=== PATIENT | female | born 2000 | race Caucasian/White ===

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

== ENCOUNTER 2022-08-30 00:42 | Emergency (ER) | payer OTHER, SELFPAY ==
[2022-08-30 00:44] VITALS: BP 129/87; PULSE 80; RESP 16; TEMP 36.2; O2SAT 100; BMI 27.3
--- NOTE | 2022-08-30 01:00 | EKG12_ITS ---
Test Reason : CP Blood Pressure : / mmHG Vent. Rate : 076 BPM Atrial Rate : 076 BPM P-R Int : 124 ms QRS Dur : 090 ms QT Int : 378 ms P-R-T Axes : 058 050 039 degrees QTc Int : 425 ms Normal sinus rhythm Normal ECG Confirmed by ANGELIA HOUSE, RANDY ([id number]), continuity editor EDUARDO ARRIAGA ([id number]) on 08/30/2022 1:14:54 PM Referred By: DOMINGO Confirmed By:LEA GALAN MD
[2022-08-30 01:42] VITALS: BP 133/83; PULSE 79; RESP 19; O2SAT 100
--- NOTE | 2022-08-30 02:04 | RAD_ITS ---
INDICATION: chest pain EXAMINATION/TECHNIQUE: X-RAY - XR Chest 2 Views COMPARISON: FINDINGS: LINES/DEVICES: None. LUNGS: No consolidation, edema or effusion. No pneumothorax. MEDIASTINUM AND CARDIOVASCULAR STRUCTURES: Cardiac silhouette not enlarged. Central airways and mediastinal contour are unremarkable. BONES AND SOFT TISSUES: Unremarkable. RAD/Chest PA and Lateral IMPRESSION: No radiographic evidence of acute cardiopulmonary disease. Electronically Signed: Elva Goyal MD at 3:10 EDT ,
--- NOTE | 2022-08-30 02:05 | EDS_ITS ---
HPI History of Present Illness Chief Complaint: Chest Pain Informant: patient, parent (Mother) and family Onset/Context/Timing Onset: Hours (2-3) Activity at onset: activity on onset and rest (Lying on couch) Timing: Continuous Quality: Positive for Pressure Location: Substernal (Lower. No radiation.) Current Severity: Moderate Maximum Severity: Moderate Worsened By: Breathing Relieved By: Nothing (Tried Tums did not help. Sitting up did not help. Exertion no worse.) Associated Symptoms: Negative for Nausea, Vomiting, Diaphoresis, Dyspnea, Cough, Lightheadedness or Palpitations Narrative Narrative: Patient started having chest discomfort that is persistent. She states she has had discomfort like this before but it is always been brief. She also has self diagnosed with acid reflux, she gets burning in her throat when that happens and she does not have that with this. She tried taking some Tums but it did not do anything. It is somewhat worse when she breathes, but nonlateralizing symptoms and without dyspnea, lightheadedness, syncope, palpitations. Mom states that remotely when she had COVID she had an abnormal EKG and was referred to cardiology who then cleared her and said that she was fine. That was the main reason she brought her in. In addition, she has a history of MTHFR, which was diagnosed by blood test only because family members including her mother have it and she was being checked to see if she has it. She has never had a DVT before. She denies any symptoms of one now. She denies any recent travel out of the area, immobilization, hospitalization, or surgery. [facility] Medical History (Updated 08/30/22 @ 03:[address] Bobby Mclaughlin MD) Anxiety Migraine MTHFR mutation Home Medications topiramate 25 mg tablet 10 mg PO DAILY 09/13/13 [History Last Taken Unknown] Allergy/AdvReac Type Severity Reaction Status Date / Time No Known Allergies Allergy Verified 11/03/18 21:15 Social History Smoking Status: Never smoker ROS ROS ED Constitutional Constitutional ED: Denies chills or fever(s) Eyes Eyes: Denies change in vision or diplopia ENT ENT ED: Denies rhinorrhea or sore throat Cardiovascular Cardiovascular: Reports chest pain; Denies palpitations or racing heartbeat Respiratory/Chest Respiratory/Chest: Denies cough or dyspnea Gastrointestinal Gastrointestinal: Denies abdominal pain, diarrhea, nausea or vomiting Genitourinary Genitourinary ED: Denies dysuria or hematuria Musculoskeletal Musculoskeletal: Denies back pain or neck pain Integumentary Denies abscess or rash Neurologic Neurologic: Denies headache(s), paresthesias or weakness Psychiatric Psychiatric: Denies anxiety or suicidal thoughts EXAM Physical Exam Const Vital Signs: 08/30/22 00:44 08/30/22 00:55 Temperature 97.1 F L Temperature Source Temporal Pulse Rate 80 Respiratory Rate 16 Respiratory Effort Normal Blood Pressure 129/87 H Blood Pressure Mean 101 Pulse Ox 100 Oxygen Delivery Method Room Air Positive well nourished and well developed Constitutional Narrative: Well-appearing General Appearance ED: well developed and NAD HEENT Reports moist mucous membranes normocephalic and atraumatic Eyes PERRL and EOMs intact bilaterally Neck full ROM and supple Chest Wall inspection of chest normal Chest Narrative: Mild sternal tenderness no crepitance Resp normal respiratory effort and clear to auscultation bilaterally Cardio regular rate, regular rhythm and no murmurs Rate: Negative for tachycardic GI non-tender and non-distended Auscultation: normoactive bowel sounds Palpation: soft Back/Spine no CVA tenderness General Back: other FROM Extremity normal to inspection General Extremety ED: Negative for edema, pulses abnormal or tenderness General Extremity: Negative for edema or pulses abnormal Neuro oriented x3, CN's II-XII intact bilaterally and no sensory deficits noted Sensorium / Orientation: awake and alert Motor Exam: strength 5/5 throughout Skin no rashes or lesions noted and no wounds Heart Score History: Slightly/Non-Suspicious ECG: Normal Age: </= 45 years Risk Factors: No Risk Factors Troponin: </= Normal Limit Score: 0 MDM MDM MDM Narrative Medical decision making narrative: Work-up included troponin, EKG, two-view chest x-ray which my interpretation is normal with narrow mediastinum, radiology in agreement, as well as a D-dimer. All of this was normal. This rules out acute pulmonary embolus as cause for her symptoms, and her troponin is negative along with a normal EKG. Furthermore, she was given Mylanta, this resolved her pain and she felt much better. Likely esophageal in etiology, reassured and discharged home, follow-up advised. Lab Data Attestation: I reviewed the patient's lab results. Labs: Laboratory Results - last 24 hr 08/30/22 08/30/22 08/30/22 02:44 02:44 02:44 WBC 7.7 RBC 5.02 Hgb 14.6 Hct 44.5 MCV 88.6 MCH 29.1 MCHC 32.8 RDW Std Deviation 40.9 RDW Coeff of Brynn 12.5 Plt Count 258 MPV 9.2 Immature Gran % (Auto) 0.400 Neut % (Auto) 48.1 Lymph % (Auto) 35.7 [place] % (Auto) 10.2 H Eos % (Auto) 4.6 Baso % (Auto) 1.0 Absolute Neuts (auto) 3.7 Absolute Lymphs (auto) 2.74 Nucleated RBC % 0 D-Dimer Quant (PE/DVT) < 0.27 L Sodium 140 Potassium 3.4 L Chloride 108 H Carbon Dioxide 26.0 Anion Gap 6 BUN 12 Creatinine 0.87 Estim Creat Clear Calc 100.31 Est GFR (MDRD) Af Amer 107 Est GFR (MDRD) Non-Af 88 BUN/Creatinine Ratio 13.8 Glucose 79 Calcium 9.0 Troponin I High Sens < 3 L Radiography Diagnostic Testing: Clinical Impression(s) from Imaging Studies Chest X-Ray 08/30/22 02:04 IMPRESSION: No radiographic evidence of acute cardiopulmonary disease. Electronically Signed: Elva Goyal MD at 3:10 EDT Reading Location ID and State: [address] [place] [address] Tel , Service support , Rhythm Strip Rhythm Strip: Sinus Rhythm Rate: 80 Ectopy: None EKG Initial EKG: Attestation: I personally reviewed and interpreted this EKG as follows: Interpretation: Sinus Rhythm and No Acute Injury Pattern Comments: Sinus rhythm at 76. Normal EKG. Discharge Plan Triage Chief Complaint: Chest Pain ED Provider: Bobby Mclaughlin Dx/Rx/DC Orders Clinical Impression: Non-cardiac chest pain Instructions: ED Chest Pain, Noncardiac Prescriptions: No Action topiramate 25 MG tablet 10 mg PO DAILY Primary Care Provider: Fly Ruiz Referrals: Fly Ruiz DO [Primary Care Provider] - 3-5 Days if not improving Activity Restrictions/Additional Instructions: Consider taking tera-ens-zyffnos Prilosec (or Prevacid or Nexium) once daily for 2 weeks if you continue having symptoms to see if that prevents them. Disposition Disposition: Home, Self Care
[2022-08-30 02:42] VITALS: BP 135/80; PULSE 76; RESP 18; O2SAT 99
[2022-08-30] MEDS: Mag Hydrox/Al Hydrox/Simeth 30 ML UDC PO (02:42)
[2022-08-30 02:52] LABS: Absolute Lymphocyte Count 2.74 X10^3/uL (0.83-4.51); Absolute Neutrophil Count 3.7 X10^3/uL (2.0-7.7); Basophil# 0.08 X10^3/uL; Eosinophil# 0.35 X10^3/uL; Eosinophils% 4.6 % (0-5); Hematocrit 44.5 % (37-47); Hemoglobin 14.6 g/dL (12.0-15.0); Lymphocyte # 2.74 X10^3/ul (0.83-4.51); Lymphocyte % 35.7 % (19-41); Mean Corp Hgb Conc 32.8 g/dL (32-36); Mean Corpuscular Hgb 29.1 pg (27.0-32.0); Mean Corpuscular Volume 88.6 fL (81-99); Mean Platelet Vol. 9.2 fl (6.2-12.0); Monocyte# 0.78 X10^3/uL; Monocyte% 10.2 % (0-10); NRBC Flagged by Analyzer 0 % (0-5); Neutrophil # 3.69 X10^3/uL (2.7-7.7); Neutrophil % 48.1 % (47-70); Platelet Count 258 K/mm3 (150-450); RBC Distribution Width CV 12.5 % (11.6-14.6); RBC Distribution Width SD 40.9 fl (35.1-43.9); Red Blood Count 5.02 M/mm3 (4.2-5.4); White Blood Count 7.7 K/mm3 (4.4-11.0)
[2022-08-30 03:04] LABS: D-Dimer Quantitative (DVT/PE) < 0.27 FEU/ug/m (0.27-0.49)
[2022-08-30 03:13] LABS: Anion Gap 6 (5-15); BUN 12 mg/dL (7-18); BUN/Creat Ratio 13.8 RATIO (10-20); Chloride 108 mmol/L (98-107); Creatinine, Serum 0.87 mg/dL (0.55-1.02); EST Glomerular Filtration Rate 88 mL/min (>60); Est Glom Filt Rate - Afr Amer 107 mL/min (>60); Estimated Creatinine Clearance 100.31 ml/min; Glucose 79 mg/dL (74-106); Potassium 3.4 mmol/L (3.5-5.1); Sodium Level 140 mmol/L (136-145); Troponin-I HS < 3 pg/mL (3.0-54.0)
[2022-08-30 04:01] VITALS: BP 134/87; PULSE 74; RESP 17; O2SAT 100
[2022-08-30 04:02] VITALS: BP 124/68; PULSE 73; RESP 15; O2SAT 98
== END 2022-08-30 04:03 | disposition home or self-care (01) ==
PROVIDERS: Emergency Provider Emergency Medicine; PCP Pediatrics; Visit Provider Emergency Medicine
DX: R07.89 Other chest pain (principal)
CPT/HCPCS: 71046; 80048; 84484; 85025; 85379; 93005; 99283